=== PATIENT | female | born 1990 | race African-American/Black ===

== ENCOUNTER 2017-05-05 12:00 | Day surgery (SDC) | payer OTHER ==
[2017-05-05 13:25] VITALS: BMI 28.7
[2017-05-05] MEDS ORDERED: FLU VACC QS2017-18 36 mo. & older 0.5 ML SYRINGE IM ONE (14:00)
--- NOTE | 2017-05-05 22:00 | ER ---
DATE OF SERVICE: 05/05/2017 PRIMARY PATCH WORKER: Jumana Sanderson D.O. CHIEF COMPLAINT: Vaginal bleeding. HISTORY OF PRESENT ILLNESS: The patient is a 26-year-old G1, P0 female with an intrauterine pregnan cy at 38 weeks and 4 days, who is presenting to Labor and Delivery today having some vaginal bleedin g. The patient reports that she has been wearing a pad and had a quarter-size stain on her pad. tiburcio does report she was recently diagnosed with a yeast infection and was given a prescription by her primary OB that she has not filled yet. She reports that she has had intercourse outside of 5 days and has had nothing since. The patient has never been told that she has a placenta that is over her cervix. The patient denies any recent fever, fall, headache, chest pain, shortness of breath, naus ea, vomiting, diarrhea, constipation, any new rashes, hip problems, knee problems, urinary urgency o r frequency. PAST MEDICAL HISTORY: Negative. PAST SURGICAL HISTORY: Negative. SOCIAL HISTORY: Denies any drug, alcohol, or tobacco use during this . Did drink socially before she was . ALLERGIES: No known drug allergies. MEDICATIONS: vitamins and a medicine prescribed for a yeast infection. OB LABORATORY DATA: Blood type is O positive, antibody screen is negative. Hepatitis B surface ant igen nonreactive, RPR nonreactive, HIV nonreactive. The patient did have 1-hour Glucola at 97. She had TECHNICAL WRITER-3 positive for Natalia and BV in February. She is GBS negative. First and third trimester RP R and HIV are both negative. REVIEW OF SYSTEMS: Per HPI. PHYSICAL EXAMINATION: VITAL SIGNS: Blood pressure is 123/68, heart rate of 74, respiratory rate of 18, satting 98% on kimmie m air. GENERAL: She appears to be in no acute distress. She is alert and oriented, cooperative and pleasa nt to interact with. HEENT: Normocephalic, atraumatic. LUNGS: Clear to auscultation bilaterally. CARDIOVASCULAR: Heart has a regular rate and rhythm. ABDOMEN: Gravid, soft, nontender. EXTREMITIES: Nontender, nonedematous. PELVIC: Vulva without masses, lesions, or erythema. A cervical exam is 2, 50, and -2 station with some old dark bloody discharge on the glove. heart tracing performed for vaginal bleeding and threatened labor. Baseline was noted to be i n the 130s with moderate long-term variability, positive accelerations, no decelerations. The patie nt is having contractions, irregular in nature, and not felt by the patient. ASSESSMENT AND PLAN: The patient is a 26-year-old G1, P0 female with some bloody show, may be contr ibuted also to recently diagnosed yeast infection that may be making her cervical tissue more friabl e. The patient has a reassuring heart tracing and no evidence of labor. The patient has been given term labor precautions and has been discharged home with instructions to fish bait picker this prescri ption that has been given to her for her yeast infection and to follow up with her primary obstetric laura as scheduled. She has also been given instructions to seek medical attention if she experiences persistent bleeding or worsening bleeding.
== END 2017-05-05 14:12 | disposition home or self-care (01) ==
LOC: L&D/OP 12:00
PROVIDERS: ATTEND Obstetrics & Gynecology
DX: O46.92 Antepartum hemorrhage, unspecified, second trimester (principal); O23.513 Infections of cervix in pregnancy, third trimester; Z3A.38 38 weeks gestation of pregnancy; Z79.899 Other long term (current) drug therapy

== ENCOUNTER 2017-05-06 21:16 | Inpatient (IN) | payer OTHER ==
[2017-05-06 21:45] VITALS: BMI 28.7
[2017-05-06] MEDS ORDERED: Lidocaine 1% (PF) 30 ML VIAL SC PRN (21:58)
[2017-05-06] MEDS ORDERED: Misoprostol 200 MCG TAB PR PRN (21:58)
[2017-05-06] MEDS ORDERED: Ibuprofen 800 MG TAB PO PRN (21:58)
[2017-05-06] MEDS ORDERED: HYDROcodone/Acetaminophen 5/325 mg Tablet PO PRN (21:58)
[2017-05-06] MEDS ORDERED: LR / Pitocin 40 units/1000 ml 1,000 ML IV PRN (21:58)
[2017-05-06] MEDS ORDERED: Diphenoxylate HCl/Atropine Tablet PO PRN (21:58)
[2017-05-06] MEDS ORDERED: Carboprost 250 MCG/ML AMP IM PRN (21:58)
[2017-05-06] MEDS ORDERED: Promethazine HCl 25 MG/ML VIAL IM PRN (21:58)
[2017-05-06] MEDS ORDERED: Acetaminophen 500 MG TAB PO PRN (21:58)
[2017-05-06] MEDS ORDERED: Ondansetron HCl/PF 4 MG/2 ML Vial IVP PRN (21:58)
--- NOTE | 2017-05-06 22:09 | PDOC.LDHP ---
Labor and Delivery H&P Chief complaint: contractions HPI: 26 yo G1 @ 38w5d by LMP c/w 8 week CRL who presents in labor. Antepartum course benign Current gestational age (weeks): 38 Due date: 05/15/17 Dating criteria: last menstrual period Grav: 1 Para: 0 Current complications: none Abnormal US findings: No Past Medical History: Denies Current medications: pre-karol vitamins Previous surgical history: none Allergies/Adverse Reactions: Allergies Allergy/AdvReac Type Severity Reaction Status Date / Time No Known Allergies Allergy Verified 05/06/17 21:46 Social history: none - Physical Exam Vital signs reviewed and normal: yes FHT: category 1 (140s, mod sachin, +accels, no decels ) [place] contractions every: q2-3 min - Vaginal Exam cm dilated: 5 (per RN) Effacement: 75% Station: -2 - OB Labs Blood type: O RH: positive HIV: negative RPR: negative HEPSAg: negative 1 hour GCT: negative GBS: negative Additional Labs: SSQ and carrier testing neg Rubella immune - Assessment 38w5d IUP Active labor - Plan Plan: admit to L&D, labor augmentation if indicated, informed consent obtained, anesthesia consult for pain management
[2017-05-06] MEDS ORDERED: Lactated Ringer's 1,000 ML IV SCH (22:30)
[2017-05-06 22:48] LABS: Hematocrit 39.1 % (36.0-47.0); Mean Platelet Volume 9.5 fL (7.4-10.4); Red Blood Cell (RBC) Count 4.43 mill/uL (4.20-5.40); White Blood Cell (WBC) Count 10.5 thou/uL (4.8-10.8)
--- NOTE | 2017-05-07 03:51 | PDOC.OPDEL ---
OB Operative/Delivery Note Delivery Dr/Surgeon: Jumana Sanderson DO Pre-Delivery Diagnosis: active labor Procedure/Post Delivery Dx: spontaneous vaginal delivery Weeks gestation: 38 Anesthesia: none - Findings A Sex: male - 5 min: 9 (apgars 9/9) - Additional Findings/Plan Placenta delivered: spontaneous Repaired Obstetrical Laceration: other (small bilateral labial repaired and perineal abrasion) Estimated blood loss: 200 cc Compilations/Other Findings: delivered in [place] position. No complications. Body cord noted Post delivery plan: routine recovery
[2017-05-07] MEDS ORDERED: Bisacodyl 10 MG SUPP PR PRN (04:02)
[2017-05-07] MEDS ORDERED: Benzocaine/Menthol 20-0.5% 60 ML CAN TOP PRN (04:02)
[2017-05-07] MEDS ORDERED: Zolpidem Tartrate 5 MG TAB PO PRN (04:02)
[2017-05-07] MEDS ORDERED: HYDROcodone/Acetaminophen 5/325 mg Tablet PO PRN (04:02)
[2017-05-07] MEDS ORDERED: Milk Of Magnesia 30 ML UDCUP PO PRN (04:02)
[2017-05-07] MEDS ORDERED: LR / Pitocin 40 units/1000 ml 1,000 ML IV SCH (04:02)
[2017-05-07] MEDS ORDERED: traMADol HCl 50 MG TAB PO PRN (04:02)
[2017-05-07] MEDS ORDERED: diphenhydrAMINE HCl 25 MG CAP PO PRN (04:02)
[2017-05-07] MEDS: Ibuprofen 800 MG TAB PO SCH ×3 (09:11→21:31)
[2017-05-07] MEDS: Docusate (Surfak) 240 MG CAP PO SCH ×2 (09:59→21:31)
[2017-05-07] MEDS: Prenatal Vitamin 1 TAB PO SCH (10:00)
--- NOTE | 2017-05-07 13:00 | PDOC.PP ---
Post Progress Note Post Day #: 0 -: Doing well. Pain controlled. Minimal lochia. PO intake tolerated: yes Flatus: yes Ambulation: yes Vital Signs (12 hours) Temp Pulse Resp BP 05/07/17 09:35 98 F 86 20 125/60 05/07/17 08:00 98 F 86 20 05/07/17 07:45 98.2 F 78 18 120/56 L 05/07/17 04:02 99.2 F 93 18 115/79 Weight Weight 189 lb - Physical Examination General: NAD Cardiovascular: RRR Result Diagrams: 05/06/17 22:24 Additional Labs: Post Labs Blood Type O POSITIVE 05/06/17 22:24 Hep Bs Antigen Non-Reactive S/CO (NonReactive) 05/06/17 22:24 (1) Vaginal delivery Code(s): O80 - ENCOUNTER FOR FULL-TERM UNCOMPLICATED DELIVERY Status: Acute (2) 38 weeks gestation of Code(s): Z3A.38 - 38 WEEKS GESTATION OF Status: Resolved (3) Active labor at term Code(s): PSI5289 - Status: Resolved - Assessment/Plan Doing well post . Continue post care.
[2017-05-08] MEDS: Ibuprofen 800 MG TAB PO SCH ×3 (05:43→20:25)
--- NOTE | 2017-05-08 09:02 | PDOC.PP ---
Post Progress Note Post Day #: 1 -: Doing well. Minimal lochia. Pain controlled, Breast feeding. PO intake tolerated: yes Flatus: yes Ambulation: yes Vital Signs (12 hours) Temp Pulse Resp BP 05/08/17 07:52 98.4 F 78 20 119/56 L 05/08/17 07:25 98.6 F 81 16 05/07/17 21:33 98.6 F 81 16 117/61 Weight Weight 189 lb - Physical Examination General: NAD Cardiovascular: RRR Respiratory: clear to ausculation bilateral Abdominal: no distention, appropriately TTP Fundus firm & at: below umbilicus Extremities: negative homans (B) Skin: no rash Neurological: no gross focal deficits Psychiatric: A&Ox3 Result Diagrams: 05/06/17 22:24 Additional Labs: Post Labs Blood Type O POSITIVE 05/06/17 22:24 Hep Bs Antigen Non-Reactive S/CO (NonReactive) 05/06/17 22:24 (1) Vaginal delivery Code(s): O80 - ENCOUNTER FOR FULL-TERM UNCOMPLICATED DELIVERY Status: Acute - Assessment/Plan Doing well post . Plan for d/c home today pending infant discharge.
[2017-05-08] MEDS: Prenatal Vitamin 1 TAB PO SCH (09:03)
[2017-05-08] MEDS: Docusate (Surfak) 240 MG CAP PO SCH ×2 (09:04→20:25)
[2017-05-08 21:49] VITALS: BP 120/68; TEMP 98.1
== END 2017-05-08 21:00 | disposition home or self-care (01) | DRG 775 ==
LOC: L&D/OP 21:16 → L&D 22:17 → 3SW 05-07 07:36
PROVIDERS: ADMIT Obstetrics & Gynecology; ATTEND Obstetrics & Gynecology
PROC: 10E0XZZ Delivery of Products of Conception, External Approach (ICD-10-PCS; principal; 2017-05-07)
PROC: 0HQ9XZZ Repair Perineum Skin, External Approach (ICD-10-PCS; 2017-05-07)
DX: O70.0 First degree perineal laceration during delivery (principal); Z37.0 Single live birth; Z3A.38 38 weeks gestation of pregnancy
CPT/HCPCS: 36415; 85027; 86780; 86850; 86900; 86901; 87340; 87389; J2001